=== PATIENT | female | born 1965 ===

== ENCOUNTER 2017-10-21 12:41 | Emergency (ER) | payer OTHER ==
[2017-10-21 12:46] VITALS: BP 128/81; PULSE 72; RESP 16; TEMP 98; O2SAT 97
--- NOTE | 2017-10-21 14:08 | ED PDOC ---
HPI: Psych/Substance Abuse Time Seen by Provider: 10/21/17 12:54 Chief Complaint (Nursing): Psychiatric Evaluation Chief Complaint (Provider): Psychiatric Evaluation History Per: Patient History/Exam Limitations: no limitations Onset/Duration Of Symptoms: Days (several months) Current Symptoms Are (Timing): Still Present Additional Complaint(s): 51 year old female presents to the ED for evaluation of anxiety. Patient states that she spends all of her money on things she does not need instead of her bills, which has been making her anxious for a very long time. Denies suicidal ideation. 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 Pt came back approx 5 minutes after being told her daughter cannot get a physical here for her own evaluation. PMD: none provided Past Medical History Reviewed: Historical Data, Nursing Documentation, Vital Signs Vital Signs: Last Vital Signs Temp 98 F 10/21/17 12:44 Pulse 72 10/21/17 12:44 Resp 16 10/21/17 12:44 BP 128/81 10/21/17 12:44 Pulse Ox 97 10/21/17 12:44 - Medical History PMH: No Chronic Diseases - Surgical History Other surgeries: cervical surgery - Family History Family History: States: Unknown Family Hx - Living Arrangements Living Arrangements: With Family - Social History Current smoker - smoking cessation education provided: No Alcohol: None Drugs: Denies - Allergies Allergies/Adverse Reactions: Allergies Allergy/AdvReac Type Severity Reaction Status Date / Time No Known Allergies Allergy Verified 10/21/17 12:44 Review of Systems ROS Statement: Except As Marked, All Systems Reviewed And Found Negative Psych: Positive for: Anxiety. Negative for: Suicidal ideation Physical Exam - Reviewed Nursing Documentation Reviewed: Yes Vital Signs Reviewed: Yes - Physical Exam Appears: Positive for: Well, Non-toxic, No Acute Distress Head Exam: Positive for: ATRAUMATIC, NORMOCEPHALIC Skin: Positive for: Normal Color, Warm, Dry Eye Exam: Positive for: Normal appearance ENT: Positive for: Normal ENT Inspection Neck: Positive for: Normal, Painless ROM, Supple Cardiovascular/Chest: Positive for: Regular Rate, Rhythm Respiratory: Positive for: Normal Breath Sounds. Negative for: Accessory Muscle Use, Respiratory Distress Extremity: Positive for: Normal ROM Neurologic/Psych: Positive for: Alert, Oriented (x3) - ECG O2 Sat by Pulse Oximetry: 97 (RA) Pulse Ox Interpretation: Normal Medical Decision Making Medical Decision Making: Time: 1300 Initial Impression: psychiatric evaluation Initial Plan: --Crisis eval PT given information for gambling support group for soraida. Scribe Attestation: Documented by Destiny Yung, acting as a scribe for Yue Butt PA-C. Provider Scribe Attestation: All medical record entries made by the Scribe were at my direction and personally dictated by me. I have reviewed the chart and agree that the record accurately reflects my personal performance of the history, physical exam, medical decision making, and the department course for this patient. I have also personally directed, reviewed, and agree with the discharge instructions and disposition. Disposition - Clinical Impression Clinical Impression: Gambling disorder, episodic - Disposition Referrals: [facility] [Outside] Disposition: Routine/Home Disposition Time: 14:23 Condition: STABLE Instructions: Compulsive Gambling Forms: [facility] (Georgian) Print Language: SLOVAK
== END 2017-10-21 14:57 | disposition home or self-care (01) ==
LOC: H.ER 12:41
DX: F63.0 Pathological gambling (principal)

== ENCOUNTER 2017-12-17 22:01 | Emergency (ER) | payer SELFPAY ==
[2017-12-17 22:13] VITALS: RESP 18
[2017-12-17] MEDS ORDERED: Oxycodone/Acetaminophen 5/325 mg Tab PO STA (22:43)
--- NOTE | 2017-12-17 22:51 | ED PDOC ---
Upper Extremity Pain/Injury Time Seen by Provider: 12/17/17 22:39 Chief Complaint (Nursing): Trauma History Per: Patient Onset/Duration Of Symptoms: Days (2) Current Symptoms Are (Timing): Still Present Severity: Moderate Additional Complaint(s): Tripped ands fell yesterday with injury to left elbow. Also injured left knee. Denies head injury or LOC or dizziness. C/o pain and swelling left elbow. Past Medical History Vital Signs: Last Vital Signs Temp 98.7 F 12/17/17 22:11 Pulse 74 12/17/17 22:11 Resp 18 12/17/17 22:11 BP 130/87 12/17/17 22:11 Pulse Ox 97 12/17/17 22:11 - Medical History PMH: HTN Denies: Diabetes, Hepatitis, HIV, Seizures, Sexually Transmitted Disease - Family History Family History: States: Unknown Family Hx - Allergies Allergies/Adverse Reactions: Allergies Allergy/AdvReac Type Severity Reaction Status Date / Time No Known Allergies Allergy Verified 12/17/17 22:11 Review of Systems Musculoskeletal: Positive for: Arm Pain Neurological: Negative for: Weakness, Numbness Physical Exam - Physical Exam Appears: Positive for: Non-toxic, No Acute Distress Head Exam: Positive for: ATRAUMATIC, NORMAL INSPECTION, NORMOCEPHALIC Skin: Positive for: Normal Color, Warm, DRY Pulses-Radial (L): 2+ Pulses-Radial (R): 2+ Rectal: Positive for: Other (Left elbow swollen and tender) Neurologic/Psych: Positive for: Other (No distal neuro vascular deficits to left elbow injury) - ECG O2 Sat by Pulse Oximetry: 97 Disposition - Clinical Impression Clinical Impression: Elbow fracture - Patient ED Disposition Is Patient to be Admitted: Transfer of Care - Disposition Referrals: Arnold Salcedo III, MD [Staff Provider] - Disposition: Transfer of Care Disposition Time: 00:00 Condition: FAIR Additional Instructions: follow up with Dr Salcedo in 1-2 days return to the ED with any worsening or concerning symptoms Instructions: Elbow Fracture (DC) Forms: [employer] (Montserratian), [employer] (Trinidadian) Print Language: [place] Patient Signed Over To: Malachi Wallace
[2017-12-17] MEDS ORDERED: Oxycodone/Acetaminophen 5/325 mg Tab ONE (23:19)
--- NOTE | 2017-12-17 23:59 | ED PDOC ---
- ECG O2 Sat by Pulse Oximetry: 97 (RA) Pulse Ox Interpretation: Normal Medical Decision Making Medical Decision Makin Patient endorsed to me by Dr. Gallagher, pending CT upper extremity done for outpatient workup purposes. pt already placed in posterior splint. 0108 CT Left ElbowFindings: Acute displaced comminuted intra-articular fractures of the coronoid process and the proximal ulnar diaphysis. Associated moderate hemarthrosis. Soft tissue edema and swelling. No dislocation. Impression: Acute displaced comminuted intra-articular fractures of the coronoid process of the ulna. Extension of the fracture lines through the proximal ulnar diaphysis. Moderate hemarthrosis. 0110 Upon reevaluation, pt sleeping comfortably instructed to follow up with orthopedics. pt arm neurovascular intact. patient is medically stable for discharge. Scribe Attestation: Documented by Fela Jaramillo, acting as a scribe for Malachi Wallace MD. Provider Scribe Attestation: All medical record entries made by the Scribe were at my direction and personally dictated by me. I have reviewed the chart and agree that the record accurately reflects my personal performance of the history, physical exam, medical decision making, and the department course for this patient. I have also personally directed, reviewed, and agree with the discharge instructions and disposition. Disposition - Clinical Impression Clinical Impression: Elbow fracture - POA Present On Arrival: None - Disposition Referrals: Arnold Salcedo III, MD [Staff Provider] - Disposition: Routine/Home Disposition Time: 01:10 Condition: IMPROVED Additional Instructions: follow up with Dr Salcedo in 1-2 days return to the ED with any worsening or concerning symptoms Instructions: Elbow Fracture (DC) Forms: IMN (Estonian), IMN (Vietnamese) Print Language: GREENLANDIC
[2017-12-18 01:33] VITALS: BP 123/76; PULSE 64; TEMP 98.2
[2017-12-18 06:23] VITALS: O2SAT 97
--- NOTE | 2017-12-18 09:26 | RAD ---
Date of service: 12/17/2017 PROCEDURE: Radiographs of the left elbow. HISTORY: trauma COMPARISON: No prior. FINDINGS: BONES: Comminuted proximal ulnar fracture, articular without dislocation or subluxation apparent. Limited anterior joint effusion identified. Extensive dorsal soft tissue edema identified. JOINTS: As above. SOFT TISSUES: As above. JOINT EFFUSION: As above. OTHER FINDINGS: None IMPRESSION: Comminuted articular fracture involving the proximal ulna. No dislocation or subluxation. Extensive dorsal soft tissue edema identified.
--- NOTE | 2017-12-18 10:52 | CT ---
Date of service: 12/17/2017 PROCEDURE: LEFT ELBOW CT WITHOUT CONTRAST HISTORY: Fx elbow COMPARISON: Left elbow radiographs 12/17/2017. TECHNIQUE: A volumetric CT acquisition through the left though was performed without intravenous contrast. Reformatted dataset have been performed using various algorithms in multiple projections. Contrast Dose: None Radiation dose:Total exam DLP = 313.97 mGy-cm. This CT exam was performed using one or more of the following dose reduction techniques: Automated exposure control, adjustment of the mA and/or kV according to patient size, and/or use of iterative reconstruction technique. FINDINGS: There is a comminuted articular fracture of the proximal left ulna appearing nondisplaced. No dislocation or subluxation. Radial head appears intact. A tiny punctate bony fragment or other calcifications seen anterior to the trochlea of the distal left humerus from an uncertain origin. No destructive bony lesion appreciated throughout the left elbow. Minimal anterior and posterior joint effusions are identified with extensive subcutaneous soft tissue edema seen at the dorsal distal left elbow soft tissues. No retained radiodense foreign body or emphysema soft tissue changes are identified. IMPRESSION: Comminuted, articular fracture proximal left ulna. No subluxation or dislocation. No definite proximal radial fracture. Yes small anterior and posterior joint effusions are identified with extensive dorsal distal elbow soft tissue edema evident.
== END 2017-12-18 02:00 | disposition home or self-care (01) ==
LOC: H.ER 22:01
DX: S52.502A Unspecified fracture of the lower end of left radius, initial encounter for closed fracture (principal); W19.XXXA Unspecified fall, initial encounter; Y92.89 Other specified places as the place of occurrence of the external cause; I10 Essential (primary) hypertension